=== PATIENT | female | born 1965 | race Caucasian/White ===

== ENCOUNTER 2016-12-06 14:13 | Emergency (ER) | payer BC ==
[2016-12-06 14:49] LABS: Hematocrit 42 % (35-47); Hemoglobin 13.9 g/dl (12.0-16.0); Mean Corpuscular HGB Conc 33 g/dl (31-36); Mean Corpuscular Hemoglobin 29 pg (27-31); Mean Corpuscular Volume 87 fL (80-97); Mean Platelet Volume 8 um3 (7.4-10.4); Red Blood Count 4.81 10^6/ul (4.0-5.4); Red Cell Distribution Width 14 % (10.5-15)
[2016-12-06 15:04] LABS: ALT 16 U/L (7-52); AST 15 U/L (13-39); Albumin 4.5 g/dL (3.2-5.2); Alkaline Phosphatase 55 U/L (34-104); Anion Gap 7 mmol/L (2-11); BUN/Creatinine Ratio 13.8 (8-20); Blood Urea Nitrogen 12 mg/dL (6-24); CO2 Carbon Dioxide 26 mmol/L (22-32); Calcium 9.5 mg/dL (8.6-10.3); Chloride 106 mmol/L (101-111); Creatine Kinase 102 U/L (10-223); EGFR African American 87.9 (>60); EGFR Non-African American 68.4 (>60); Globulin 2.8 g/dL (2-4); Glucose 102 mg/dL (70-100); Magnesium 2.1 mg/dL (1.9-2.7); Potassium 3.6 mmol/L (3.5-5.0); Sodium 139 mmol/L (133-145); Total Protein 7.3 g/dL (6.4-8.9)
--- NOTE | 2016-12-06 15:04 | RAD ---
HISTORY: Altered mental status COMPARISONS: None TECHNIQUE: Multiple contiguous axial CT scans were obtained of the head without intravenous contrast. FINDINGS: HEMORRHAGE/INFARCT: There is no hemorrhage or acute infarct. MASSES/SHIFT: There is no mass or shift. EXTRA-AXIAL SPACES: There are no extra-axial fluid collections. SULCI AND VENTRICLES: The sulci and ventricles are normal in size and position for the patient's stated age. CEREBRUM: There are no focal parenchymal abnormalities. BRAINSTEM: There are no focal parenchymal abnormalities. CEREBELLUM: There are no focal parenchymal abnormalities. VESSELS: The vessels are grossly normal. PARANASAL SINUSES: The paranasal sinuses are clear. ORBITS: The orbits are unremarkable. BONES AND SOFT TISSUE: No bone or soft tissue abnormalities are noted. OTHER: None IMPRESSION: NO ACUTE INTRACRANIAL PATHOLOGY.
[2016-12-06 15:18] LABS: Urine Bacteria Absent (Absent); Urine Bilirubin Negative (Negative); Urine Glucose Negative (Negative); Urine Nitrite Negative (Negative)
[2016-12-06 15:28] LABS: Benzodiazepine Urine Screen None Detected (None Detect)
[2016-12-06 15:40] LABS: Alcohol < 10 mg/dL (<10)
[2016-12-06 15:43] LABS: TSH (Thyroid Stimulating Horm) 1.13 mcIU/mL (0.34-5.60)
--- NOTE | 2016-12-06 15:58 | RAD ---
INDICATION: Altered mental status COMPARISON: None TECHNIQUE: An AP portable view obtained at 1435 hours is submitted. FINDINGS: Bones/Soft Tissues: There are no acute bony findings. Cardiomediastinal: The cardiomediastinal silhouette is normal. Lungs: There are no infiltrates. Pleura: There are no pleural effusions. Other: None IMPRESSION: NO ACTIVE DISEASE.
[2016-12-06] MEDS ORDERED: NS 0.9% 1000 ML* 1,000 ML IV ONE (16:05)
[2016-12-06 17:11] VITALS: BP 115/83
--- NOTE | 2016-12-07 09:02 | ED ---
Mikie William Alfonso, scribed for Audi Morel MD on 12/06/16 at 1525 . Altered Mental Status - HPI Summary HPI Summary: This patient is a 51 year old F presenting to [facility] accompanied by female coworker with a chief complaint of AMS since earlier today. 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 Patient states I was eating lunch and I left the lunch room and got dizzy, I stumbled and they caught me. She also states I feel like I am talking like a 11 year old and I feel drunk. The patient rates the pain 4/ 10 in severity. Symptoms aggravated and alleviated by nothing. Coworker states she has confusion. Patient reports panic attack, dizziness, and near syncope. PMHx of depression, and GERD. - History Of Current Complaint Chief Complaint: EDAltMentalStatus Stated Complaint: AMS Time Seen by Provider: 12/06/16 14:31 Hx Obtained From: Patient, Other: - Female coworker Onset/Duration: Still Present Timing: Constant, Lasting Hours - Earlier today Severity Initially: Moderate Severity Currently: Moderate Character: Confusion Aggravating Factor(s): Nothing Alleviating Factor(s): Nothing Associated Signs And Symptoms: Positive: Dizziness - Allergies/Home Medications Allergies/Adverse Reactions: Allergies Allergy/AdvReac Type Severity Reaction Status Date / Time Erythromycin Allergy Mild Hives Verified 12/06/16 14:17 Home Medications: Home Medications Citalopram TAB* [CeleXA TAB*] 40 mg PO DAILY 12/06/16 [History Confirmed ] Famotidine TAB* [Pepcid 20 MG TAB*] 20 mg PO BID 12/06/16 [History Confirmed 12/15] PMH/Surg Hx/FS Hx/Imm Hx Endocrine/Hematology History: Denies: Hx Diabetes Cardiovascular History: Denies: Hx Hypertension Respiratory History: Denies: Hx Asthma GI History: Reports: Hx Gastroesophageal Reflux Disease Sensory History: Denies: Hx Deafness Opthamlomology History: Denies: Hx Legally Blind Psychiatric History: Reports: Hx Depression - Cancer History Hx Chemotherapy: No Hx Radiation Therapy: No - Surgical History Surgery Procedure, Year, and Place: breast reduction 2002. ganglion removed. c -section Infectious Disease History: No Infectious Disease History: Denies: Traveled Outside the [place] in Last 30 Days - Family History Known Family History: Positive: Hypertension, Other - Prostate cancer - Social History Alcohol Use: Occasionally Substance Use Type: Reports: None Smoking Status (MU): Never Smoked Tobacco Review of Systems Negative: Fever Neurological: Other - Positive AMS, confusion, panic attack, dizziness, and near syncope All Other Systems Reviewed And Are Negative: Yes Physical Exam - Summary Physical Exam Summary: VITAL SIGNS: Reviewed. GENERAL: Patient is a well-developed and nourished female who is lying comfortable in the stretcher. Patient is not in any acute respiratory distress. HEAD AND FACE: No signs of trauma. No ecchymosis, hematomas or skull depressions. No sinus tenderness. EYES: PERRLA, EOMI x 2, No injected conjunctiva, no nystagmus. No photophobia. EARS: Hearing grossly intact. Ear canals and tympanic membranes are within normal limits. MOUTH: Oropharynx within normal limits. NECK: Supple, trachea is midline, no adenopathy, no JVD, no carotid bruit, no c- spine tenderness, neck with full ROM. No meningeal signs, no Kernig's or brudzinskis signs. CHEST: Symmetric, no tenderness at palpation LUNGS: Clear to auscultation bilaterally. No wheezing or crackles. CVS: Regular rate and rhythm, S1 and S2 present, no murmurs or gallops appreciated. ABDOMEN: Soft, non-tender. No signs of distention. No rebound no guarding, and no masses palpated. Bowel sounds are normal. EXTREMITIES: FROM in all major joints, no edema, no cyanosis or clubbing. NEURO: Alert and oriented x 3. No acute neurological deficits. Speech is normal and follows commands. SKIN: Dry and warm GCS: 15 Triage Information Reviewed: Yes Vital Signs On Initial Exam: Initial Vitals Temp Pulse Resp BP Pulse Ox 98.1 F 72 16 139/93 100 12/06/16 14:18 12/06/16 14:18 12/06/16 14:18 12/06/16 14:18 12/06/16 14:18 Vital Signs Reviewed: Yes - Meet Coma Scale Coma Scale Total: 15 Diagnostics - Vital Signs Vital Signs Temp Pulse Resp BP Pulse Ox 12/06/16 15:02 67 97 12/06/16 15:01 125/83 12/06/16 14:58 66 97 08/08/17 14:30 68 144/100 100 12/06/16 14:27 65 98 12/06/16 14:25 97.7 F 72 18 150/100 100 12/06/16 14:18 98.1 F 72 16 139/93 100 - Laboratory Lab Results: Lab Results 12/06/16 12/06/16 12/06/16 Range/Units 14:41 14:41 14:41 WBC 5.0 (3.5-10.8) 10^3/ul RBC 4.81 (4.0-5.4) 10^6/ul Hgb 13.9 (12.0-16.0) g/dl Hct 42 (35-47) % MCV 87 (80-97) fL MCH 29 (27-31) pg MCHC 33 (31-36) g/dl RDW 14 (10.5-15) % Plt Count 263 (150-450) 10^3/ul MPV 8 (7.4-10.4) um3 Neut % (Auto) 65.6 (38-83) % Lymph % (Auto) 23.4 L (25-47) % [place] % (Auto) 8.0 (1-9) % Eos % (Auto) 1.3 (0-6) % Baso % (Auto) 1.7 (0-2) % Absolute Neuts (auto) 3.3 (1.5-7.7) 10^3/ul Absolute Lymphs (auto) 1.2 (1.0-4.8) 10^3/ul Absolute Monos (auto) 0.4 (0-0.8) 10^3/ul Absolute Eos (auto) 0.1 (0-0.6) 10^3/ul Absolute Basos (auto) 0.1 (0-0.2) 10^3/ul Absolute Nucleated RBC 0.01 10^3/ul Nucleated RBC % 0.1 Sodium 139 (133-145) mmol/L Potassium 3.6 (3.5-5.0) mmol/L Chloride 106 (101-111) mmol/L Carbon Dioxide 26 (22-32) mmol/L Anion Gap 7 (2-11) mmol/L BUN 12 (6-24) mg/dL Creatinine 0.87 (0.51-0.95) mg/dL Est GFR ( Amer) 87.9 (>60) Est GFR (Non-Af Amer) 68.4 (>60) BUN/Creatinine Ratio 13.8 (8-20) Glucose 102 H (70-100) mg/dL Lactic Acid 1.0 (0.5-2.0) mmol/L Calcium 9.5 (8.6-10.3) mg/dL Magnesium 2.1 (1.9-2.7) mg/dL Total Bilirubin 0.40 (0.2-1.0) mg/dL AST 15 (13-39) U/L ALT 16 (7-52) U/L Alkaline Phosphatase 55 (34-104) U/L Total Creatine Kinase 102 (10-223) U/L Troponin I 0.00 (<0.04) ng/mL Total Protein 7.3 (6.4-8.9) g/dL Albumin 4.5 (3.2-5.2) g/dL Globulin 2.8 (2-4) g/dL Albumin/Globulin Ratio 1.6 (1-3) TSH Pending Urine Color Urine Appearance Urine pH (5-9) Ur Specific [place] (1.010-1.030) Urine Protein (Negative) Urine Ketones (Negative) Urine Blood (Negative) Urine Nitrate (Negative) Urine Bilirubin (Negative) Urine Urobilinogen (Negative) Ur Leukocyte Esterase (Negative) Urine WBC (Auto) (Absent) Urine RBC (Auto) (Absent) Ur Squamous Epith Cells (Absent) Urine Bacteria (Absent) Urine Glucose (Negative) Serum Alcohol Pending 12/06/16 Range/Units 15:03 WBC (3.5-10.8) 10^3/ul RBC (4.0-5.4) 10^6/ul Hgb (12.0-16.0) g/dl Hct (35-47) % MCV (80-97) fL MCH (27-31) pg MCHC (31-36) g/dl RDW (10.5-15) % Plt Count (150-450) 10^3/ul MPV (7.4-10.4) um3 Neut % (Auto) (38-83) % Lymph % (Auto) (25-47) % [place] % (Auto) (1-9) % Eos % (Auto) (0-6) % Baso % (Auto) (0-2) % Absolute Neuts (auto) (1.5-7.7) 10^3/ul Absolute Lymphs (auto) (1.0-4.8) 10^3/ul Absolute Monos (auto) (0-0.8) 10^3/ul Absolute Eos (auto) (0-0.6) 10^3/ul Absolute Basos (auto) (0-0.2) 10^3/ul Absolute Nucleated RBC 10^3/ul Nucleated RBC % Sodium (133-145) mmol/L Potassium (3.5-5.0) mmol/L Chloride (101-111) mmol/L Carbon Dioxide (22-32) mmol/L Anion Gap (2-11) mmol/L BUN (6-24) mg/dL Creatinine (0.51-0.95) mg/dL Est GFR ( Amer) (>60) Est GFR (Non-Af Amer) (>60) BUN/Creatinine Ratio (8-20) Glucose (70-100) mg/dL Lactic Acid (0.5-2.0) mmol/L Calcium (8.6-10.3) mg/dL Magnesium (1.9-2.7) mg/dL Total Bilirubin (0.2-1.0) mg/dL AST (13-39) U/L ALT (7-52) U/L Alkaline Phosphatase (34-104) U/L Total Creatine Kinase (10-223) U/L Troponin I (<0.04) ng/mL Total Protein (6.4-8.9) g/dL Albumin (3.2-5.2) g/dL Globulin (2-4) g/dL Albumin/Globulin Ratio (1-3) TSH Urine Color Colorless Urine Appearance Clear Urine pH 8.0 (5-9) Ur Specific [place] 1.003 L (1.010-1.030) Urine Protein Negative (Negative) Urine Ketones Negative (Negative) Urine Blood Negative (Negative) Urine Nitrate Negative (Negative) Urine Bilirubin Negative (Negative) Urine Urobilinogen Negative (Negative) Ur Leukocyte Esterase 1+ H (Negative) Urine WBC (Auto) Trace(0-5/hpf) (Absent) Urine RBC (Auto) Trace(0-2/hpf) (Absent) Ur Squamous Epith Cells Present H (Absent) Urine Bacteria Absent (Absent) Urine Glucose Negative (Negative) Serum Alcohol Result Diagrams: 12/06/16 14:41 12/06/16 14:41 Lab Statement: Any lab studies that have been ordered have been reviewed, and results considered in the medical decision making process. - Radiology CXR Radiology Interpretation Completed By: Radiologist - NO ACTIVE DISEASE - CT Brain CT Interpretation Completed By: Radiologist - NO ACUTE INTRACRANIAL PATHOLOGY. - EKG 1451 Cardiac Rate: Bradycardia - BPM 57 EKG Rhythm: Sinus Rhythm ST Segment: Normal Altered Mental Statu Course/Dx - Course Course Of Treatment: This patient is a 51 year old F presenting to [facility] accompanied by female coworker with a chief complaint of AMS since earlier today. 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 Patient states I was eating lunch and I left the lunch room and got dizzy, I stumbled and they caught me. She also states I feel like I am talking like a 11 year old and I feel drunk. The patient rates the pain 4/10 in severity. Symptoms aggravated and alleviated by nothing. Coworker states she has confusion. Patient reports panic attack, dizziness, and near syncope. PMHx of depression, and GERD. Assessment/Plan: Test results without any significant abnormalities. Urinalysis negative for UTI. Urinetox negative. EKG reveals sinus bradycardia. Brain CT reveals NO ACUTE INTRACRANIAL PATHOLOGY. CXR reveals NO ACTIVE DISEASE. In the ED course the patient was hydrated. The patient since arrival is A&Ox3. She was ambulated without any help with a good steady walk. Since the patient is asymptotic and all test results are within normal limits, she will be discharged with PCP follow up. Patient is hemodynamically stable and alert and oriented to person, place, and time. I discussed all the findings and test results with the patient. Patient was instructed to return to the emergency room immediately if any of the symptoms return or worsens. Patient understands and agrees. Plan of care was discussed with the patient and patient understands and agrees with the plan of care. All questions were answered at patient satisfaction. There were no further complaints or concerns. Patient is alert and oriented x 3. Patient vital signs are stable. Patient is to follow up with primary care physician in the next 2 to 3 days. Patient understands and agrees. - Diagnoses Differential Diagnosis/HQI/PQRI: CVA, Hypoglycemia, Intracranial Bleed, Seizure Discharge Diagnoses: Dizziness Discharge - Discharge Plan Condition: Stable Disposition: HOME Patient Education Materials: Dizziness (ED) Forms: *Work Release Referrals: Rachel CHERY,Humberto Gonzalez [Primary Care Provider] - 3 Days The documentation as recorded by the Mikie yeager Alfonso accurately reflects the service I personally performed and the decisions made by , Audi Morel MD.
== END 2016-12-06 17:30 | disposition home or self-care (01) ==
LOC: ED 14:13
DX: R42 Dizziness and giddiness (principal); R41.82 Altered mental status, unspecified; R55 Syncope and collapse
CPT/HCPCS: 36415; 70450; 71010; 80053; 80307; 80320; 81003; 81015; 82550; 83605; 83735; 84443; 84484; 85025; 87086; 93005; 99283; G0480

== ENCOUNTER 2017-02-03 09:22 | Emergency (ER) | payer BC ==
[2017-02-03] MEDS ORDERED: NS 0.9% 1000 ML* 1,000 ML IV ONE (09:40)
[2017-02-03] MEDS ORDERED: LORazepam INJ* 2 MG/ML 1 ML VIAL IV ONE (09:40)
[2017-02-03] MEDS ORDERED: Aspirin Low Dose CHEW TAB* 81 MG PO ONE (09:53)
[2017-02-03 10:08] LABS: Hematocrit 40 % (35-47); Hemoglobin 13.7 g/dl (12.0-16.0); Mean Corpuscular HGB Conc 34 g/dl (31-36); Mean Corpuscular Hemoglobin 29 pg (27-31); Mean Corpuscular Volume 85 fL (80-97); Mean Platelet Volume 8 um3 (7.4-10.4); Red Blood Count 4.71 10^6/ul (4.0-5.4); Red Cell Distribution Width 14 % (10.5-15)
[2017-02-03 10:32] LABS: Alcohol < 10 mg/dL (<10)
[2017-02-03 10:33] LABS: ALT 14 U/L (7-52); AST 15 U/L (13-39); Albumin 4.2 g/dL (3.2-5.2); Alkaline Phosphatase 56 U/L (34-104); Anion Gap 8 mmol/L (2-11); BUN/Creatinine Ratio 24.3 (8-20); Blood Urea Nitrogen 18 mg/dL (6-24); CO2 Carbon Dioxide 23 mmol/L (22-32); Calcium 9.3 mg/dL (8.6-10.3); Chloride 105 mmol/L (101-111); Creatine Kinase 64 U/L (10-223); EGFR Non-African American 82.4 (>60); Globulin 2.8 g/dL (2-4); Glucose 107 mg/dL (70-100); Magnesium 1.7 mg/dL (1.9-2.7); Potassium 3.9 mmol/L (3.5-5.0); Sodium 136 mmol/L (133-145)
[2017-02-03 11:10] LABS: Urine Bilirubin Negative (Negative); Urine Glucose Negative (Negative); Urine Nitrite Negative (Negative)
[2017-02-03 11:30] LABS: Benzodiazepine Urine Screen None Detected (None Detect)
--- NOTE | 2017-02-03 12:11 | RAD ---
HISTORY: Seizure, dizziness, headaches, neck pain COMPARISONS: PET CT dated December 06, 2016 TECHNIQUE: The following sequences were obtained of the head: Sagittal T1-weighted images, axial T2-weighted images, axial FLAIR images, axial susceptibility weighted images, axial T1-weighted images. Additionally, axial diffusion-weighted images were obtained with calculated apparent diffusion coefficients. FINDINGS: Limited study motion HEMORRHAGE/INFARCT: There is no hemorrhage or acute infarct. MASSES/SHIFT: There is no mass or shift. EXTRA-AXIAL SPACES/MENINGES: There are no extra-axial fluid collections. SULCI AND VENTRICLES: The sulci and ventricles are normal in size and position for the patient's stated age. CEREBRUM: There are no focal parenchymal abnormalities. BRAINSTEM: There are no focal parenchymal abnormalities. CEREBELLUM: There are no focal parenchymal abnormalities. The cerebellar tonsils are normal in size and position. SELLA: The sella is normal. PINEAL: The pineal region is clear. CP ANGLE/TEMPORAL BONES: The labyrinthine structures are grossly normal. VESSELS: Normal flow-voids are noted within the visualized vertebral vasculature. DIFFUSION ABNORMALITIES: There are no diffusion abnormalities. PARANASAL SINUSES/MASTOIDS: The paranasal sinuses are clear. ORBITS: The orbits are unremarkable. BONES AND SOFT TISSUE: No bone or soft tissue abnormalities are noted. OTHER: None IMPRESSION: LIMITED STUDY. UNREMARKABLE MRI OF THE BRAIN
--- NOTE | 2017-02-03 12:12 | RAD ---
HISTORY: Seizure, dizziness, headache, neck pain COMPARISONS: None TECHNIQUE: 3-D axial [id number] MR angiography was performed of the head to include the pokagon of [place]. Multiple 3-D maximum intensity projection reconstructions are also submitted for review. FINDINGS: The study is limited by patient motion artifact. RIGHT VERTEBRAL ARTERY: The distal right vertebral artery is unremarkable, without stenosis. LEFT VERTEBRAL ARTERY: The distal left vertebral artery is unremarkable, without stenosis. DOMINANCE: The vertebral arteries are codominant. DISTAL RIGHT CERVICAL INTERNAL CAROTID ARTERY: The distal right cervical internal carotid artery is unremarkable. DISTAL LEFT CERVICAL INTERNAL CAROTID ARTERY: The distal left cervical internal carotid artery is unremarkable. INTRACRANIAL CIRCULATION: There is no aneurysm, vascular malformation, occlusion, or stenosis of the visualized intracranial circulation. The anterior communicating artery complex is clear. Bilateral posterior communicating arteries are identified. OTHER FINDINGS: None IMPRESSION: LIMITED STUDY SECONDARY TO PATIENT MOTION. WITHIN THE LIMITATIONS OF THE STUDY, THERE IS NO ANEURYSM, VASCULAR MALFORMATION, OCCLUSION, OR STENOSIS OF THE VISUALIZED INTRACRANIAL CIRCULATION.
--- NOTE | 2017-02-03 12:14 | RAD ---
HISTORY: Seizure, dizziness, headache, neck pain COMPARISONS: None TECHNIQUE: The following sequences were obtained of the neck after localizing images: Stacked axial 2-D [id number] MR angiography of the neck; 3-D axial [id number] MR angiography of the carotid bifurcations. Multiple 3-D maximum intensity projection reconstructions are submitted for review. FINDINGS: AORTA: The aortic arch is not well visualized secondary to technique and motion artifact. There is no obvious ostial or proximal stenosis of the cephalic great vessels. RIGHT VERTEBRAL ARTERY: The right vertebral artery is patent and without stenosis. There is in plane flow saturation artifact of the horizontal portion of the right vertebral artery. LEFT VERTEBRAL ARTERY: The left vertebral artery is patent, without stenosis. There is in plane flow saturation artifact of the horizontal portion of the left vertebral artery. DOMINANCE: The vertebral arteries are codominant. RIGHT COMMON CAROTID ARTERY: The right common carotid artery is patent. RIGHT INTERNAL CAROTID ARTERY: There is no right internal carotid artery stenosis by NASCET criteria. LEFT COMMON CAROTID ARTERY: The left common carotid artery is patent. LEFT INTERNAL CAROTID ARTERY: There is no left internal carotid artery stenosis by NASCET criteria. ADDITIONAL FINDINGS: The visualized intracranial circulation is unremarkable. IMPRESSION: NO INTERNAL CAROTID ARTERY STENOSIS BY NASCET CRITERIA. CPT II Codes: 3100F
[2017-02-03 15:25] VITALS: BP 132/74
--- NOTE | 2017-02-03 17:03 | CONS ---
CONSULTATION REPORT: DATE OF CONSULT / DICTATION: 02/03/17 - EMERGENCY DEPT PRIMARY CARE PHYSICIAN: Dr. Holly. PATIENT OF: Dr. Looney. HISTORY OF PRESENT ILLNESS: This is a 51-year-old woman we are asked to evaluate for unusual episodes. She had an episode about a year ago that was similar to the one today where she got numbness and tingling in her whole body associated with some other symptoms, the details are not quite clear and she was seen at [facility] at that time and was felt to have a panic attack. Then, on 12/06/16, she had an episode of dizziness, feeling drunk and had numbness and tingling in arms and feet and this resolved. Today, she was at work in a meeting and she noted that she had heaviness in her head and numbness and tingling in her arms, legs and around her lips. This persisted for about a half an hour while she was in the meeting, and then when the meeting was over, and she went to stand, she began hyperventilating and then her legs became weak , although she could bear weight. She also had some stiffening in her legs with some jerking or tremors of both upper extremities. She appeared awake. Those symptoms resolved within a couple of minutes and she was then fine from a 8:30 or so till 10, then she had another episode of numbness and tingling in arms, legs and around her lips. This resolved and then she also had hyperventilation, leg weakness and then jerking. She was brought into the emergency room. She was seen in the emergency room and she had a brief episode also with numbness, tingling and then jerking, and the ER physician was apparently concerned for a possibility of seizure or central event. When I went to see her, her symptoms had all resolved. She has a history of depression and anxiety, but is not being treated for anxiety at this time. She does not feel like she is under any particular stress. PAST MEDICAL HISTORY: Medical problems include depression and anxiety. No history of seizures and no other medical problems. PAST SURGICAL HISTORY: She is status post breast reduction in 2002, , gangrene removal. MEDICATIONS: Her home medications include: 1. Claritin 1 capsule daily. 2. Antivert 25 mg b.i.d. 3. Celexa 40 mg daily. 4. Pepcid 20 mg daily. ALLERGIES: She is allergic to ERYTHROMYCIN. FAMILY HISTORY: Significant for hypertension and prostate cancer. SOCIAL HISTORY: She does not smoke, drink or use alcohol. REVIEW OF SYSTEMS: Negative in all 14 spheres. PHYSICAL EXAM: She was afebrile. Temperature 98.7, pulse 71, respirations 14, blood pressure 119/77. She is alert, oriented with normal speech, comprehension. Cranial nerves II through XII were intact. Fundi were benign. Motor exam revealed normal tone, strength, coordination. Sensation intact to light touch. Reflexes are 2 and equal. Downgoing toes. Neck: Supple. Chest : Clear. Cardiovascular: Regular rate and rhythm. Abdomen: Soft with positive bowel sounds. DIAGNOSTIC STUDIES/LAB DATA: Her EEG was normal shortly after her events. Her MRI, MRA was normal. Her CBC was normal. Normal INR. Normal chemistries. Her ionized calcium is 4.49. Magnesium 1.7. Beta-HCG negative. Normal liver function tests. UA was negative. Toxicology was negative. IMPRESSION: I had discussed with Lary as her tests were going on that her story sounded most like panic attacks, her anxiety disorder, but that it is possible that this could have been seizures, but the exact details made it unlikely; the normal EEG is reassuring. Other things have could have caused similar symptoms would be basilar artery migraine or basilar artery ischemia and the MRI, MRA would make these possibilities extremely unlikely and the history is most likely consistent with anxiety attacks. I spoke to Dr. Looney and recommended that she follow up with her primary to have her anxiety further addressed. Thank you for sharing her case. [id number]/[facility] #: [id number] ANGELITO
--- NOTE | 2017-02-03 20:02 | ED ---
Aj William Angela, scribed for Audi Looney MD on 02/03/17 at 0946 . Neurological HPI - HPI Summary HPI Summary: This pt is a 51 y/o accompanied by her coworker presenting to [facility] c/o sudden onset of heavy frontal head, tingling of hands, feet, toes, and face at approximately 0800 today. Pt reports she was at work when this episode happened. 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 At approximately 0800 today pt began to feel "the whole inside of her head heavy" and felt off. She states that she immediately felt "something was going to happen." Pt notes that her hands, toes , feet, and face felt numb and tingly. Additionally her feet felt heavy, eyes began to water, was hyperventilating, and felt as if she couldn't move. She states she was able to hear her coworkers speak to her but couldn't understand them. Pt also notes she was able to see the colors of the pictures on the harmon but was not able to distinct what was the picture. She was also not able to feel her coworkers hold her hands. Per coworker, the pt began shaking her arms and legs, the pt couldn't stand up and was hyperventilating. Coworker notes this episode lasted approximately 30 seconds. After the shaking stopped, the pt was able to speak and answer questions. The pt was put in a car and brought to the ED. Pt has had this episode before about 1 month to 6 weeks ago. Pt currently endorses nausea but denies sinus pain, cold symptoms. While in the ED, pt began to feel tight all over and became tearful. Pt took one 25 mg Meclizine today. Meclizine TID was prescribed by [facility] right after her last episode. Pt notes she has not seen a neurologist yet. PMHx: GERD, depression. PSHx: Ganglion removed from finger, , fallopian tubes removed, appendectomy, breast reduction - History of Current Complaint Chief Complaint: EDSeizure Stated Complaint: SEIZURE Time Seen by Provider: 02/03/17 09:25 Hx Obtained From: Patient, Other: - coworker Hx Last Menstrual Period: yesterday Onset/Duration: Started hours ago Timing: Sudden Onset - lasting 30 seconds Neurological Deficit Location: Facial - lips, RUE, LUE, RLE, LLE Pain Intensity: 0 Character: Room Spinning, Unable To Describe - "whole inside of head felt heavy ", Numbness/Tingling - in UE and LE bilaterally, and lips - Allergy/Home Medications Allergies/Adverse Reactions: Allergies Allergy/AdvReac Type Severity Reaction Status Date / Time Erythromycin Allergy Mild Hives Verified 02/03/17 09:57 Home Medications: Home Medications Loratadine [Claritin 10 MG CAP] 1 cap PO DAILY WITH MEAL 02/03/17 [History Confirmed 02/03/17] Meclizine TAB* [Antivert 12.5 TAB*] 25 mg PO TID PRN 02/03/17 [History Confirmed 02/03/17] PMH/Surg Hx/FS Hx/Imm Hx Endocrine/Hematology History: Denies: Hx Diabetes Cardiovascular History: Denies: Hx Hypertension Respiratory History: Denies: Hx Asthma GI History: Reports: Hx Gastroesophageal Reflux Disease Sensory History: Denies: Hx Legally Blind, Hx Deafness Opthamlomology History: Denies: Hx Legally Blind Psychiatric History: Reports: Hx Depression - Cancer History Hx Chemotherapy: No Hx Radiation Therapy: No - Surgical History Surgery Procedure, Year, and Place: breast reduction 2002. ganglion removed. c -section Infectious Disease History: No Infectious Disease History: Denies: Traveled Outside the [place] in Last 30 Days - Family History Known Family History: Positive: Hypertension - both parents, Other - Father: Prostate cancer. Mother: high cholesterol - Social History Alcohol Use: Occasionally Substance Use Type: Reports: None Smoking Status (MU): Never Smoked Tobacco Review of Systems Negative: Fever, Chills Eyes: Negative ENT: Negative Cardiovascular: Negative Positive: Other - hyperventilating . Negative: Cough Positive: Nausea. Negative: Vomiting Neurological: Other - "inside of head feels heavy," heavy feet, shaking UE and LE Positive: Paresthesia - UE and LE bilaterally, face All Other Systems Reviewed And Are Negative: Yes Physical Exam Triage Information Reviewed: Yes Vital Signs On Initial Exam: Initial Vitals Temp Pulse Resp BP Pulse Ox 98.7 F 78 18 157/101 99 02/03/17 09:22 02/03/17 09:22 02/03/17 09:22 02/03/17 09:22 02/03/17 09:22 Vital Signs Reviewed: Yes Appearance: Positive: Well-Appearing Skin: Positive: Warm, Skin Color Reflects Adequate Perfusion Head/Face: Positive: Normal Head/Face Inspection Eyes: Positive: EOMI ENT: Positive: Normal ENT inspection, TMs normal Neck: Positive: Supple. Negative: Nuchal Rigidity Respiratory/Lung Sounds: Positive: Clear to Auscultation, Breath Sounds Present Cardiovascular: Positive: RRR. Negative: Murmur Abdomen Description: Positive: Nontender Bowel Sounds: Positive: Present Musculoskeletal: Positive: Strength/ROM Intact Neurological: Positive: Sensory/Motor Intact, Alert, Oriented to Person Place, Time, CN Intact II-III, Finger to Nose - smooth Psychiatric: Positive: Normal Diagnostics - Vital Signs Vital Signs Temp Pulse Resp BP Pulse Ox 02/03/17 09:22 98.7 F 78 18 157/101 99 - Laboratory Result Diagrams: 02/03/17 09:55 02/03/17 09:55 Lab Statement: Any lab studies that have been ordered have been reviewed, and results considered in the medical decision making process. - EKG 1010 Cardiac Rate: NL - 67 bpm EKG Rhythm: Sinus Rhythm EKG Interpretation: No STEMI - Additional Comments Diagnostic Additional Comments: MRA Neck (as ready by the radiologist): IMPRESSION: No internal carotid artery stenosis by nascet criteria. ED physician has reviewed this radiology report and agrees. MRA Head (as ready by the radiologist): IMPRESSION: Limited study secondary to patient motion.Within the limitations of the study, there is no aneurysm, vascular malformation, occlusion, or stenosis of the visualized intracranial circulation. ED physician has reviewed this radiology report and agrees. MRI Brain (as read by the radiologist): IMPRESSION: Limited study. Unremarkable MRI of the brain. ED physician has reviewed this radiology report and agrees. Course/Dx - Course Course Of Treatment: Pt is a 51 y/o who presents with sudden onset of episode of frontal head heaviness, hyperventilation, tingling of hands, feet, toes, and face at approximately 0800 today. Pt has had a previous similar episode 1 month - 6 weeks ago. Pt was prescribed Meclizine TID. I discussed the pt's case with Dr. Romano who recommends baby aspirins, MRI/A brain, MRA neck, EEG. Bloodwork , MRA head, MRA neck, MRI brain, and EKG were obtained. MRI of brain, MRA of neck and head are all negative. Assessment/Plan: 51 yr old with neg MRI/A and Neg EEG per Dr Romano. It is thought the patient has panic attacks at this point andhyperventilation. She is comfortable and asymptomatic now. DC to home FU with PMD - Diagnoses Provider Diagnoses: Hyperventilation, Hypertension, Panic attack - Physician Notifications Discussed Care Of Patient With: Dav Romano Time Discussed With Above Provider: 09:48 - He recommends baby aspirins, MRI/A brain, MRA neck, EEG, and he will consult. Instructed by Provider To: Other - I discussed the pt's case with Dr. Romano. Discharge - Discharge Plan Condition: Good Disposition: HOME Patient Education Materials: Panic Attack (ED), Hyperventilation (ED) Referrals: Rachel CHERY,Humberto Gonzalez [Primary Care Provider] - 1 Day The documentation as recorded by the Aj yeager Angela accurately reflects the service I personally performed and the decisions made by me, Audi Looney MD.
--- NOTE | 2017-02-04 05:59 | EEG ---
ELECTROENCEPHALOGRAPHY: DATE OF STUDY: 02/03/17 - EMERGENCY DEPT PATIENT OF: Dr. Romano. HISTORY: This is a 51-year-old woman who is having episodes of bilateral numbness and tingling in association with weakness in legs, stiffness and rigidity, and some jerking. She has had 3 episodes from morning of the EEG and during EEG she had some jolting in her bed. MEDICATIONS: Includes: 1. Meclizine. 2. Famotidine. 3. Citalopram. INTERPRETATION: With the patient awake, background cerebral activity consists of moderate amplitude, posterior dominant 11 Hz rhythm. Muscle movement artifact noted at times. No epileptiform potentials, focal abnormalities, or major asymmetries of background are noted including at times with the patient having jolting episodes. [id number]/[facility] #: [id number] MTDD
== END 2017-02-03 15:06 | disposition home or self-care (01) ==
LOC: ED 09:22
DX: R06.4 Hyperventilation (principal); I10 Essential (primary) hypertension; F41.0 Panic disorder [episodic paroxysmal anxiety]
CPT/HCPCS: 36415; 70544; 70547; 70551; 80053; 80307; 80320; 81003; 82330; 82550; 83605; 83735; 84702; 85025; 85610; 93005; 95816; 99284; A9270-GY; G0480; J2060

== ENCOUNTER 2018-10-01 14:20 | Emergency (ER) | payer BC ==
[2018-10-01 14:38] VITALS: BP 126/85
--- NOTE | 2018-10-01 15:01 | UC ---
Back Pain HPI - HPI Summary HPI Summary: 53 y/o female presents to the urgent care c/o lower back pain, starting this morning, getting progressively worse, hard to walk and stand, and pt has numbness/tingling in the left leg - History of Current Complaint Chief Complaint: UCBackPain Stated Complaint: lower back pain Time Seen by Provider: 10/01/18 14:47 Hx Obtained From: Patient Hx Last Menstrual Period: 08/2018 ?: No - Hx of B/L tube ligation Onset/Duration: Gradual Onset, Lasting Days - 1 day, Still Present Timing: Constant Severity Initially: Mild Severity Currently: Moderate Pain Intensity: 6 Pain Scale Used: 0-10 Numeric Back Pain: Is Discrete @ - left side lower back pain, Radiates To - left lower leg Aggravating Factor(s): Movement, Bending Alleviating Factor(s): Rest, OTC Meds - Ibuprofen PO 800mg and Tylenol PO 1000mg this morning Associated Signs And Symptoms: Positive: Tingling - left foot. Negative: Swelling, Redness, Bruising, Fever, Weakness, Numbness, Abdominal Pain, Flank Pain, Bladder Incontinence, Bowel Incontinence, Weight Loss, Pain with Weight Bearing Related History: Similar Episode Dx As - sciatica - Risk Factors AAA Risk Factors: Negative TAD Risk Factors: Negative Cauda Equina Risk Factors: Negative Epidural Abscess Risk Factors: Negative - Allergies/Home Medications Allergies/Adverse Reactions: Allergies Allergy/AdvReac Type Severity Reaction Status Date / Time erythromycin base Allergy Hives Verified 10/01/18 14:38 latex Allergy Difficulty Verified 10/01/18 14:38 Breathing Home Medications: Home Medications Acetaminophen [Tylenol Extra Strength] 1,000 mg PO DAILY 10/01/18 [History Confirmed 10/01/18] Duloxetine HCl 40 mg PO DAILY 10/01/18 [History Confirmed 10/01/18] Esomeprazole(NF) [Nexium(NF)] 20 mg PO DAILY 10/01/18 [History Confirmed ] Estradiol 1 mg PO DAILY 10/01/18 [History Confirmed 10/01/18] Ibuprofen 800 mg PO DAILY 10/01/18 [History Confirmed 10/01/18] Progesterone, Micronized [Progesterone] 1 dose PO DAILY 10/01/18 [History Confirmed 10/01/18] PMH/Surg Hx/FS Hx/Imm Hx Previously Healthy: Yes Psychological History: Depression - Surgical History Surgical History: Yes Surgery Procedure, Year, and Place: breast reduction 2002. ganglion removed. c -section. pyloric stenosis,. abd adhesions,. salping/appy - Family History Known Family History: Positive: Hypertension - both parents, Other - Father: Prostate cancer. Mother: high cholesterol - Social History Occupation: Employed Full-time Lives: With Family Alcohol Use: Occasionally Substance Use Type: None Smoking Status (MU): Never Smoked Tobacco Review of Systems All Other Systems Reviewed And Are Negative: Yes Constitutional: Positive: Negative Skin: Positive: Negative Eyes: Positive: Negative ENT: Positive: Negative Respiratory: Positive: Negative Cardiovascular: Positive: Negative Gastrointestinal: Positive: Negative Genitourinary: Positive: Negative Motor: Positive: Negative Neurovascular: Positive: Negative Musculoskeletal: Positive: Decreased ROM - lower back, Other: - lower back pain Neurological: Positive: Negative Psychological: Positive: Negative Is Patient Immunocompromised?: No Physical Exam - Summary Physical Exam Summary: Vital Signs Reviewed: Yes Appearance: Well-Appearing, Well-Nourished, female sitting in the examining table w/o any apparent distress. Eyes: Positive: Conjunctiva Clear - PERRLA, EOMI. ENT: Positive: Normal ENT inspection, Hearing grossly normal, Pharynx normal, TMs normal, Uvula midline Neck: Positive: Supple, Nontender, No Lymphadenopathy Respiratory: Positive: Chest non-tender, Lungs clear, Normal breath sounds, No respiratory distress Cardiovascular: Positive: RRR, No Murmur, Pulses Normal, Brisk Capillary Refill Abdomen Description: Positive: Nontender, No Organomegaly, Soft. Negative: CVA Tenderness (R), CVA Tenderness (L) Bowel Sounds: Positive: Present Musculoskeletal: Positive: Strength Intact, BACK: Patient walked into the urgent care room with symmetric ambulation, No signs of limping, antalgic, able to bear weight. No signs of trauma, No masses palpated. Point tenderness at the level of L5-S1, No CVAT, no flank ecchymosis . No sacroiliac notch tenderness, No saddle anesthesia.ROM: limited due to pain, Straight Leg Raise: negative. Patellar reflexes: brisk, symmetric Muscle strength lower extremities. Dorsiflexion/ plantar flexion of ankles. Heel/ toe walk. Lower extremities: Femoral, popliteal, posterior tibial, and dorsalis pedis pulses WNL. Pt refuse rectal exam Neurological: Positive: Alert, Muscle Tone Normal Psychological Exam: Normal Skin Exam: Normal Triage Information Reviewed: Yes Vital Signs: Initial Vital Signs Temp 97.6 F 10/01/18 14:35 Pulse 106 10/01/18 14:35 Resp 18 10/01/18 14:35 BP 126/85 10/01/18 14:35 Pulse Ox 95 10/01/18 14:35 Back Pain Course/Dx - Course Course Of Treatment: IMPRESSION: MILD TO MODERATE DEGENERATIVE DISC DISEASE. - Differential Dx/Diagnosis Differential Diagnosis/HQI/PQRI: Arthritis, Compressive Cord Syndrome, Fracture , Herniated Disc, Renal Colic, Strain, Sprain Provider Diagnosis: Degenerative disc disease, lumbar, Back muscle spasm, Lower back pain Discharge - Sign-Out/Discharge Documenting (check all that apply): Patient Departure All imaging exams completed and their final reports reviewed: Yes - Discharge Plan Condition: Stable Disposition: HOME Prescriptions: Cyclobenzaprine TAB* [Flexeril 10 MG TAB*] 10 mg PO TID PRN #21 tab PRN Reason: Spasms - Back methylPREDNISolone [Medrol Dosepak 4 MG*] 4 mg PO .SEE TAVARES INSTRUCTION #1 tavares Patient Education Materials: Low Back Strain (ED), Degenerative Disc Disease ( ED) Forms: *Work Release Referrals: Humberto Ramos PA [Primary Care Provider] - 3 Days Additional Instructions: 1- Please continue taken Ibuprofen PO q6-8hrs prn after meals as directed for pain. Medrol dose tavares as directed to alleviate symptoms 2- Take Flexeril PO as directed for muscle spasm. Please do not drive while taking the medication. 3- Avoid strenuous exercise or heavy lifting. Please wear a back support. 4- Please call Spinal Nurse Navigator: Aruna Marcano: [phone] for further management of your Degenerative disc disease and herniated discs. - Billing Disposition and Condition Condition: STABLE Disposition: Home
== END 2018-10-01 16:03 | disposition home or self-care (01) ==
LOC: UCEAST 14:20
DX: M54.5 Low back pain (principal); M62.830 Muscle spasm of back; M51.36 Other intervertebral disc degeneration, lumbar region; F32.9 Major depressive disorder, single episode, unspecified; Z88.1 Allergy status to other antibiotic agents; Z91.040 Latex allergy status
CPT/HCPCS: 72110; 99212; G0463

== ENCOUNTER 2019-02-17 17:26 | Emergency (ER) | payer BC ==
[2019-02-17 17:38] VITALS: BP 119/78
[2019-02-17] MEDS ORDERED: Ibuprofen TAB* 600 MG PO ONE (17:56)
--- NOTE | 2019-02-17 17:56 | UC ---
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 - History of Current Complaint Chief Complaint: UCLowerExtremity Stated Complaint: RIGHT KNEE INJURY Time Seen by Provider: 02/17/19 17:40 Hx Obtained From: Patient Hx Last Menstrual Period: 08/2018 Onset/Duration: Sudden Onset, Still Present Severity Initially: Moderate Severity Currently: Moderate Pain Intensity: 7 Pain Scale Used: 0-10 Numeric Character: Dull, Aching Aggravating Factor(s): Movement, Weight Bearing Alleviating Factor(s): Rest Associated Signs And Symptoms: Positive: Swelling, Bruising Able to Bear Weight: No Legs: 1 - hematoma 2 - tender here, pain with full extension, stable joint - Allergies/Home Medications Allergies/Adverse Reactions: Allergies Allergy/AdvReac Type Severity Reaction Status Date / Time erythromycin base Allergy Hives Verified 02/17/19 17:37 latex Allergy Difficulty Verified 02/17/19 17:37 Breathing Home Medications: Home Medications Gabapentin CAP(*) [Neurontin 300 CAP(*)] 300 mg PO TID 02/17/19 [History Confirmed 02/17/19] PMH/Surg Hx/FS Hx/Imm Hx Previously Healthy: Yes - Surgical History Surgical History: Yes Surgery Procedure, Year, and Place: breast reduction 2002. ganglion removed. c -section. pyloric stenosis,. abd adhesions,. salping/appy - Family History Known Family History: Positive: Hypertension - both parents, Other - Father: Prostate cancer. Mother: high cholesterol - Social History Alcohol Use: Occasionally Substance Use Type: None Smoking Status (MU): Never Smoked Tobacco Review of Systems All Other Systems Reviewed And Are Negative: Yes Constitutional: Positive: Negative Skin: Positive: Bruising - right calf Eyes: Positive: Negative ENT: Positive: Negative Respiratory: Positive: Negative Cardiovascular: Positive: Negative Gastrointestinal: Positive: Negative Genitourinary: Positive: Negative Motor: Positive: Negative Neurovascular: Positive: Negative Musculoskeletal: Positive: Arthralgia - right knee Neurological: Positive: Negative Psychological: Positive: Negative Physical Exam Triage Information Reviewed: Yes Appearance: Well-Appearing, No Pain Distress, Well-Nourished Vital Signs: Initial Vital Signs Temp 97.9 F 02/17/19 17:34 Pulse 108 02/17/19 17:34 Resp 18 02/17/19 17:34 BP 119/78 02/17/19 17:34 Pulse Ox 96 02/17/19 17:34 Vital Signs Reviewed: Yes Eyes: Positive: Conjunctiva Clear ENT: Positive: Hearing grossly normal. Negative: Pharyngeal erythema, Nasal congestion, Trismus, Muffled voice, Hoarse voice Dental Exam: Normal Neck: Positive: Supple, Nontender Respiratory: Positive: Lungs clear, Normal breath sounds, No respiratory distress, No accessory muscle use Cardiovascular: Positive: RRR, No Murmur Musculoskeletal: Positive: ROM Limited @ - pain with full extension Neurological: Positive: Alert Psychological Exam: Normal Skin Exam: Other - ecchymosis Diagnostics - Radiology No standard instances Radiology Interpretation Completed By: ED Physician Summary of Radiographic Findings: no fx noted Knee Pain Course/Dx - Differential Dx/Diagnosis Provider Diagnosis: Injury of right knee, Contusion of right lower leg Discharge ED - Sign-Out/Discharge Documenting (check all that apply): Patient Departure All imaging exams completed and their final reports reviewed: No - Discharge Plan Condition: Stable Disposition: HOME Patient Education Materials: Knee Immobilizer (ED), Knee Pain (ED), Crutch Instructions (ED) Forms: *Work Release Referrals: Kartik Gore MD [Medical Doctor] - As Soon As Possible Additional Instructions: rest elevate ice no fx noted by me official reading pending - Billing Disposition and Condition Condition: STABLE Disposition: Home
--- NOTE | 2019-02-18 16:05 | UC ---
- Progress Note Progress Note: Final radiologist reading of right knee x-ray from February 17, 2019 comes back as no fracture. Provider interpretation the same date is same therefore there is no discrepancy. Course/Dx - Diagnoses Provider Diagnoses: Injury of right knee, Contusion of right lower leg Discharge ED - Sign-Out/Discharge Documenting (check all that apply): Patient Departure All imaging exams completed and their final reports reviewed: Yes - Discharge Plan Condition: Stable Disposition: HOME Patient Education Materials: Crutch Instructions (ED), Knee Pain (ED), Knee Immobilizer (ED) Forms: *Work Release Referrals: Kartik Gore MD [Medical Doctor] - As Soon As Possible Additional Instructions: rest elevate ice no fx noted by me official reading pending - Billing Disposition and Condition Condition: STABLE Disposition: Home
== END 2019-02-17 18:49 | disposition home or self-care (01) ==
LOC: UCCORT 17:26
DX: S80.02XA Contusion of left knee, initial encounter (principal); W19.XXXA Unspecified fall, initial encounter; Y92.9 Unspecified place or not applicable
CPT/HCPCS: 99213; A9270-GY; G0463